=== PATIENT | male | born 1995 | race Caucasian/White ===

== ENCOUNTER 2023-07-12 16:52 | Emergency (ER) | payer BC, OTHER ==
[2023-07-12 17:06] VITALS: PULSE 88; RESP 16; TEMP 98.8; BMI 25.0
[2023-07-12] MEDS ORDERED: ACETAMINOPHEN 1000 MG/100 ML BAG IVPB ONE (17:19)
[2023-07-12] MEDS ORDERED: ACETAMINOPHEN INJECTION 100 ML IVPB ONE (17:39)
[2023-07-12 18:33] LABS: HEMATOCRIT 47.3 % (35.4-49); HEMOGLOBIN 16.2 G/dL (11.7-16.9); MCH 31.9 pg (25.7-33.7); MCHC 34.3 g/dl (32.0-35.9); MEAN CELL VOLUME 93.2 fl (80-96); PLATELET COUNT 267.1 10^3/uL (134-434); RBC 5.08 10^6/uL (4.00-5.60); RDW 13.7 % (11.9-15.9); WHITE BLOOD COUNT 10.4 10^3/uL (4.0-10.8)
[2023-07-12 18:37] LABS: PLATELET ESTIMATE ADEQUATE
[2023-07-12 18:54] LABS: ALBUMIN 4.6 g/dl (3.4-5.0); BILIRUBIN,TOTAL 0.5 mg/dl (0.2-1); CALCIUM 9.5 mg/dl (8.5-10.1); CREATININE 0.7 mg/dl (0.6-1.3); TOT PROT 7.1 g/dl (6.4-8.2)
[2023-07-12 19:02] LABS: POTASSIUM 4.8 mmol/L (3.5-5.1)
== END 2023-07-12 21:43 | disposition home or self-care (01) ==
LOC: FER 16:52
PROC: 3E033NZ Introduction of Analgesics, Hypnotics, Sedatives into Peripheral Vein, Percutaneous Approach (ICD-10-PCS; principal; 2023-07-12)
DX: S32.019A Unspecified fracture of first lumbar vertebra, initial encounter for closed fracture (principal); S22.32XA Fracture of one rib, left side, initial encounter for closed fracture; S37.011A Minor contusion of right kidney, initial encounter; R10.9 Unspecified abdominal pain; S32.039A Unspecified fracture of third lumbar vertebra, initial encounter for closed fracture; S32.049A Unspecified fracture of fourth lumbar vertebra, initial encounter for closed fracture; M79.662 Pain in left lower leg; S70.11XA Contusion of right thigh, initial encounter; S70.12XA Contusion of left thigh, initial encounter; M54.9 Dorsalgia, unspecified; V86.95XA Unspecified occupant of 3- or 4- wheeled all-terrain vehicle (ATV) injured in nontraffic accident, initial encounter; Y92.828 Other wilderness area as the place of occurrence of the external cause
CPT/HCPCS: 36415; 71046-TC-FY; 72131-TC; 72170-TC-FY; 73552-TC-LT-FY; 73552-TC-RT-FY; 73590-TC-LT-FY; 74177-TC; 80053; 81003; 82550; 82553; 85027; 87086; 99285-25; Q9967